=== PATIENT | female | born 1975 | race Caucasian/White ===

== ENCOUNTER 2023-02-10 07:04 | Day surgery (SDC) | payer BC ==
[2023-02-07 11:31] VITALS: BMI 30.2
[2023-02-10] MEDS ORDERED: Lidocaine 1% MPF 2 ML VIAL ONE (08:42)
[2023-02-10] MEDS ORDERED: PROPOFOL 60 ML ONE (09:19)
== END 2023-02-10 10:16 | disposition home or self-care (01) ==
LOC: CSHSDC 07:04
PROVIDERS: ATTEND Internal Medicine Gastroenterology
PROC: 0DJ08ZZ Inspection of Upper Intestinal Tract, Via Natural or Artificial Opening Endoscopic (ICD-10-PCS; principal; 2023-02-10)
PROC: 0DJD8ZZ Inspection of Lower Intestinal Tract, Via Natural or Artificial Opening Endoscopic (ICD-10-PCS; principal; 2023-02-10)
DX: Z12.11 Encounter for screening for malignant neoplasm of colon (principal); K64.8 Other hemorrhoids; K44.9 Diaphragmatic hernia without obstruction or gangrene; K21.9 Gastro-esophageal reflux disease without esophagitis; Z79.899 Other long term (current) drug therapy; Z88.1 Allergy status to other antibiotic agents; Z88.6 Allergy status to analgesic agent
CPT/HCPCS: J2704